=== PATIENT | female | born 2000 | race Caucasian/White ===

== ENCOUNTER 2024-04-05 20:01 | Inpatient (IN) | payer OTHER ==
[2024-04-05] MEDS: ELECTROLYTE-148 SOLN 1,000 ML IV SCH (21:00)
[2024-04-05 21:14] VITALS: BMI 30.2
[2024-04-05 21:21] LABS: HEMATOCRIT 37.2 % (32.4-45.2); HEMOGLOBIN 12.7 GM/dL (10.7-15.3); MCH 31.9 pg (25.7-33.7); MCHC 34.1 g/dl (32.0-36.0); MEAN CELL VOLUME 93.5 fl (80-96); MEAN PLT VOLUME 9.6 fl (7.5-11.1); PLATELET COUNT 282 10^3/uL (134-434); RBC 3.98 M/mm3 (3.60-5.2); RDW 13.5 % (11.6-15.6); WHITE BLOOD COUNT 14.4 K/mm3 (4.0-10.0)
[2024-04-05 21:39] LABS: INR 0.95 (0.83-1.09); POTASSIUM 4.5 mmol/L (3.5-5.1); PROTHROMBIN TIME (PATIENT) 10.4 SEC (9.7-13.0)
[2024-04-05 21:40] LABS: BLOOD UREA NITROGEN 15.2 mg/dL (7-18); CALCIUM 10.7 mg/dL (8.5-10.1)
[2024-04-05 21:42] LABS: ACTIVATED PTT 24.8 SECONDS (25.2-36.5)
[2024-04-05 21:44] LABS: CREATININE 0.6 mg/dL (0.55-1.3)
[2024-04-05 22:06] LABS: SYPHILIS W/ RPR CONF NON-REACTIVE (NONREACTIVE)
[2024-04-05 22:12] LABS: ANISOCYTOSIS 0; HELMET CELLS 0; HOWELL-JOLLY BODIES 0; MACROCYTOSIS 0; OVALOCYTE 0; ROULEAU 0; SICKELED CELLS 0; TARGET CELLS 0; TEAR DROP CELLS 0; TOXIC GRANULATION 0
[2024-04-05 22:36] LABS: HIV INTERPRETATION NEGATIVE (NEGATIVE)
[2024-04-05] MEDS: DINOPROSTONE 10 MG VAGINAL SUPPOSITORY VG ONE (22:38)
[2024-04-06] MEDS: DINOPROSTONE 10 MG VAGINAL SUPPOSITORY VG ONE (13:50)
[2024-04-06] MEDS ORDERED: ACETAMINOPHEN 325 MG TABLET (FP) ONE (22:21)
[2024-04-06] MEDS: ACETAMINOPHEN 325 MG TABLET (FP) PO PRN (22:25)
[2024-04-07] MEDS: OXYTOCIN 30 UNITS in 0.9% NS 30 UNIT/500 ML INFUS.BAG IVPB SCH (03:00)
[2024-04-07] MEDS ORDERED: OXYTOCIN 30 UNITS in 0.9% NS 30 UNIT/500 ML INFUS.BAG IVPB ONE (03:01)
[2024-04-07] MEDS ORDERED: BUTORPHANOL TARTRATE 2 MG/ML VIAL ONE (03:19)
[2024-04-07] MEDS ORDERED: PROMETHAZINE HCL 25 MG/1 ML VIAL ONE (03:19)
[2024-04-07] MEDS: PROMETHAZINE HCL 25 MG/1 ML VIAL IVPB ONE (03:30)
[2024-04-07] MEDS: BUTORPHANOL TARTRATE 1 MG/ML VIAL IVPB ONE (03:35)
[2024-04-07] MEDS ORDERED: FENTANYL/BUPIVACAINE/NS/PF - PCEA - 50 ML DISP.SYRIN EP ONE (05:55)
[2024-04-07] MEDS: FENTANYL/BUPIVACAINE/NS/PF - PCEA - 50 ML DISP.SYRIN EP SCH (06:30)
[2024-04-07] MEDS ORDERED: NALOXONE HCL 0.4 MG/ML VIAL IVPUSH PRN (07:00)
[2024-04-07] MEDS ORDERED: OXYTOCIN 20 UNITS in 0.9% NS 20 UNIT/1,000 ML INFUS.BAG IV ONE (08:07)
[2024-04-07] MEDS ORDERED: METHYLERGONOVINE MALEATE 0.2 MG/1 ML AMP IM PRN (08:43)
[2024-04-07] MEDS ORDERED: oxyCODONE HCL 5 MG TABLET PO PRN (08:43)
[2024-04-07] MEDS ORDERED: BISACODYL 10 MG SUPP.RECT RC PRN (08:43)
[2024-04-07] MEDS ORDERED: ACETAMINOPHEN 325 MG TABLET (FP) PO PRN (08:43)
[2024-04-07] MEDS: OXYTOCIN 20 UNITS in 0.9% NS 20 UNIT/1,000 ML INFUS.BAG IV SCH (09:00)
[2024-04-07] MEDS: PRENATAL VITAMINS W/ FOLIC ACID TABLET (FP) PO SCH (12:09)
[2024-04-07] MEDS: BENZOCAINE 20% 57 GM BOTTLE TP PRN (15:20)
[2024-04-07] MEDS: WITCH HAZEL 50% (TUCKS) 40 PAD/JAR PAD TP PRN (15:21)
[2024-04-07] MEDS: BENZOCAINE 28 GM HEMORRHOIDAL OINTMENT TP PRN (15:21)
[2024-04-08 08:15] LABS: HEMATOCRIT 30.4 % (32.4-45.2); HEMOGLOBIN 10.1 GM/dL (10.7-15.3); MCH 31.5 pg (25.7-33.7); MCHC 33.3 g/dl (32.0-36.0); MEAN CELL VOLUME 94.8 fl (80-96); PLATELET COUNT 224 10^3/uL (134-434); RBC 3.21 M/mm3 (3.60-5.2); RDW 13.5 % (11.6-15.6); WHITE BLOOD COUNT 15.4 K/mm3 (4.0-10.0)
[2024-04-08] MEDS: IBUPROFEN 600 MG TABLET (FP) PO PRN (09:30)
[2024-04-08] MEDS: FERROUS SO4 325 MG TABLET (FP) PO SCH (09:31)
[2024-04-08 10:31] LABS: ANISOCYTOSIS 0; HELMET CELLS 0; HOWELL-JOLLY BODIES 0; MACROCYTOSIS 0; OVALOCYTE 0; ROULEAU 0; SICKELED CELLS 0; TARGET CELLS 0; TEAR DROP CELLS 0; TOXIC GRANULATION 0
[2024-04-08] MEDS ORDERED: SENNOSIDES/DOCUSATE COMBO (SENNA PLUS) TABLET (UD) PO PRN (22:00)
[2024-04-09 11:32] VITALS: BP 125/78; PULSE 91; RESP 18; TEMP 97.7
[2024-04-10 12:37] LABS: POC NITRAZINE POS
== END 2024-04-09 12:25 | disposition home or self-care (01) | DRG 560 ==
LOC: JLDR 20:01 → J3W 04-07 11:35
PROVIDERS: ADMIT Obstetrics & Gynecology; ATTEND Obstetrics & Gynecology
PROC: 3E0P7VZ Introduction of Hormone into Female Reproductive, Via Natural or Artificial Opening (ICD-10-PCS; 2024-04-05)
PROC: 10E0XZZ Delivery of Products of Conception, External Approach (ICD-10-PCS; principal; 2024-04-07)
PROC: 0HQ9XZZ Repair Perineum Skin, External Approach (ICD-10-PCS; 2024-04-07)
PROC: 0W8NXZZ Division of Female Perineum, External Approach (ICD-10-PCS; 2024-04-07)
PROC: 3E0334Z Introduction of Serum, Toxoid and Vaccine into Peripheral Vein, Percutaneous Approach (ICD-10-PCS; 2024-04-07)
DX: O70.0 First degree perineal laceration during delivery (principal); O36.0930 Maternal care for other rhesus isoimmunization, third trimester, not applicable or unspecified; Z3A.38 38 weeks gestation of pregnancy; Z37.0 Single live birth
CPT/HCPCS: 36415; 59409; 80048; 83986-QW; 85025; 85461; 85610; 85730; 86780; 86850; 86900; 86901; 87389; 96372; J2790